=== PATIENT | female | born 1975 | race Caucasian/White ===

== ENCOUNTER 2017-02-12 13:39 | Observation (INO) ==
[2017-02-12] MEDS ORDERED: Tdap (Boostrix) Vaccine 0.5 ML SYRINGE IM ONE (13:56)
[2017-02-12] MEDS ORDERED: Ketorolac 60 MG/2 ML VIAL IM ONE (13:56)
[2017-02-12] MEDS ORDERED: Lido/Epi/Tetra Gel 2 ML SYRINGE TP ONE (13:56)
[2017-02-12] MEDS ORDERED: Lidocaine/EPI 1:100k 1% 50 ML VIAL INFILT ONE (13:56)
--- NOTE | 2017-02-12 13:56 | Emergency Department Note ---
Disposition Clinical Impression: Pilonidal cyst Abscess of skin or subcutaneous tissue Qualifiers: Site of cutaneous abscess: buttock Qualified Code(s): L02.31 - Cutaneous abscess of buttock Cellulitis Qualifiers: Site of cellulitis: buttock Qualified Code(s): L03.317 - Cellulitis of buttock Disposition: Admitted As Inpatient Condition: Fair Skin/Abscess/FB HPI Chief complaint: ED Skin/Abscess/Foreign Body Stated complaint: Cyst on tailbone Time Seen by Provider: 02/12/17 13:52 Source: patient Mode of arrival: private vehicle Limitations: no limitations Nursing Notes Reviewed: Yes Vital Signs Reviewed: Yes Pt Subjective Complaint: abscess/boil Onset (ago): day(s) Tetanus Up to Date: no Location: buttocks Severity: moderate, severe Quality: stabbing, sharp Consistency: constant, Worsening Improves with: none Worsens with: palpation Context: other (Hx of pilonidal cyst s/p recurrent infection) Associated symptoms: Denies: fever, chills, rigors, itching, nausea, vomiting, malaise, arthralgias, myalgias, cough, shortness of breath Treatments prior to arrival: other (was seen at urgent care yesterday and was given ABX) Home Medications Medication Instructions Recorded Confirmed Effexor 02/11/17 Latuda 02/11/17 [place] 02/11/17 02/11/17 Wellbutrin 02/11/17 Previous Rx's Medication Instructions Recorded GuaiFENesin/Dextromethorphan 5 ml PO Q6HR PRN #120 syrup 02/11/17 [Robitussin/DM] Mupirocin [Bactroban Oint] 1 appl TP BID 7 Days 02/11/17 Sulfamethoxazole/Trimeth DS 1 each PO BID #14 tablet 02/11/17 [Bactrim DS] Tramadol HCl [Ultram] 50 mg PO TID PRN #12 tab 02/11/17 Allergies Allergy/AdvReac Type Severity Reaction Status Date / Time No Known Allergies Allergy Verified 02/11/17 10:15 All systems ED: reviewed and negative except as stated. Review of Systems: As Per HPI Constitutional: Denies: fever, chills, weakness Gastrointestinal: Denies: abdominal pain, nausea, vomiting Musculoskeletal: Denies: back pain, neck pain, joint swelling Neurological: Denies: headache, confusion, vertigo Hematological/Lymphatic: Denies: easy bleeding, easy bruising, lymphadenopathy Past Medical History - Past Medical History Attestation: Yes The following information was validated with the patient. Source: patient Medical history: Reports: hepatitis, other Psychiatric history: Reports: bipolar - Social History Smoking Status: Current every day smoker Smokeless Tobacco Status: No Alcohol use: Reports: none Drug use: Reports: other (currently in a drug rehab program. Has been clean for 5 months.) Physical Exam - General Limitations: no limitations General appearance: alert, in no apparent distress - Head Head exam: atraumatic, normocephalic, normal inspection - Eye Eye exam: Present: normal appearance, PERRL. Absent: scleral icterus, conjunctival injection, periorbital swelling - ENT ENT exam: mucous membranes moist - Neck Neck exam: Present: normal inspection - Chest Chest inspection: Present: normal inspection - Respiratory Respiratory exam: Absent: respiratory distress - Cardiovascular Cardiovascular exam: Present: normal rhythm, tachycardia, normal heart sounds - Extremities Exam Extremities exam: Present: full ROM - Expanded Lower Extremity Exam Gait: observed and normal - Neurological Exam Neurological exam: Present: alert, oriented X3, CN II-XII intact, normal gait - Psychiatric Psychiatric exam: Present: normal affect, normal mood - Skin Skin exam: Present: warm, dry, intact, normal color - Expanded Skin Exam Type of lesion: Present: abscess Distribution: other (upper gluteal cleft on left side with erythema extending to the upper right side) Description: Present: size (5cm), tenderness (Severe), erythematous (7 cm of cellulitis), swelling (Mild), fluctuant Course Course Narrative: Patient presents from a rehabilitation facility for evaluation of painful cyst on tailbone. She states that she has pilonidal cyst that often gets infected. She has had to have it drained twice before. She is trying to get in with a surgeon. She has had increased swelling and pain for the last week. She denies fever, chills, nausea or vomiting. She states that she is currently in a rehabilitation program and she has been clean for several months. She is concerned about the level of pain, she will experience when the cyst is drained , however, and states that her facility Center paper with her stating that if needed, she is able to take pain medication. I did review this form. We will try non-narcotic medications first. The abscess is large and she has approximately 7 cm of cellulitis surrounding it. The cellulitis crosses the cleft to the opposite side. LET was applied. Five mL of 1% lidocaine with epinephrine were used to surround the abscess. This provided successful anesthesia. A cruciate incision was made and approximately 20 mL of foul-smelling purulent drainage was evacuated. An attempt was made to explore the abscess and potentially break up any loculations. On exploration with curved hemostats, the enormity of the abscess pocket became evident. I paged Dr. peters, and discussed the case. He recommends that she be admitted to the hospitalist for IV antibiotics. The hospitalist has been paged. - Consultations Consultation #1: Case was discussed with Dr. Peters. He recommends that the patient be admitted for IV antibiotics. He will consult on the patient. Time: 16:44 Vital Signs Temperature 98.4 F 02/12/17 13:47 Pulse Rate 113 02/12/17 13:47 Respiratory Rate 16 02/12/17 13:47 Blood Pressure 128/91 02/12/17 13:47 O2 Sat by Pulse Oximetry 95 02/12/17 13:47 Temperature 98.4 F 02/12/17 13:47 Pulse Rate 113 02/12/17 13:47 Respiratory Rate 16 02/12/17 13:47 Blood Pressure 128/91 02/12/17 13:47 O2 Sat by Pulse Oximetry 95 02/12/17 13:47 Oxygen Delivery Oxygen Delivery Room Air Procedures - Abscess I/D Consent obtained: verbal consent Site: other (superior left gluteal cleft) Side (if applicable): left Local Anesthetic: lidocaine 1%, with epi Technique: incised with #11 blade Amount of fluid: 10 (ml) Irrigation: Yes Packing used?: none Complications: pain
[2017-02-12] MEDS ORDERED: Clindamycin 900 MG/50 ML 900 MG/50 ML IV.SOLN IVPB ONE (16:49)
[2017-02-12] MEDS ORDERED: *HR* HYDROcodone/Acet 5/325 mg TABLET PO ONE (16:49)
[2017-02-12] MEDS ORDERED: Ondansetron ODT 4 MG TAB.RAPDIS SL ONE (16:50)
[2017-02-12] MEDS ORDERED: Nicotine 21 MG PATCH.TD24 TD ONE (16:53)
--- NOTE | 2017-02-12 17:21 | Emergency Department Note ---
Disposition Clinical Impression: Pilonidal cyst Abscess of skin or subcutaneous tissue Qualifiers: Site of cutaneous abscess: buttock Qualified Code(s): L02.31 - Cutaneous abscess of buttock Cellulitis Qualifiers: Site of cellulitis: buttock Qualified Code(s): L03.317 - Cellulitis of buttock Disposition: Admitted As Inpatient Condition: Fair Referrals: NONE,PCP [Primary Care Provider] - Forms: ED Satisfaction Letter General Adult HPI - General Chief complaint: ED Skin/Abscess/Foreign Body Stated complaint: Cyst on tailbone Time Seen by Provider: 02/12/17 13:52 Source: patient Mode of arrival: private vehicle Limitations: no limitations - History of Present Illness Pain Scale: 7 - Related Data Home Medications Medication Instructions Recorded Confirmed Effexor 02/11/17 Latuda 02/11/17 [place] 02/11/17 02/11/17 Wellbutrin 02/11/17 Previous Rx's Medication Instructions Recorded GuaiFENesin/Dextromethorphan 5 ml PO Q6HR PRN #120 syrup 02/11/17 [Robitussin/DM] Mupirocin [Bactroban Oint] 1 appl TP BID 7 Days 02/11/17 Sulfamethoxazole/Trimeth DS 1 each PO BID #14 tablet 02/11/17 [Bactrim DS] Tramadol HCl [Ultram] 50 mg PO TID PRN #12 tab 02/11/17 Allergies Allergy/AdvReac Type Severity Reaction Status Date / Time No Known Allergies Allergy Verified 02/11/17 10:15 Constitutional: Denies: fever, chills, weakness Gastrointestinal: Denies: abdominal pain, nausea, vomiting Musculoskeletal: Denies: back pain, neck pain, joint swelling Neurological: Denies: headache, confusion, vertigo Hematological/Lymphatic: Denies: easy bleeding, easy bruising, lymphadenopathy Past Medical History - Past Medical History Medical history: Reports: hepatitis, other Psychiatric history: Reports: bipolar - Social History Smoking Status: Current every day smoker Smokeless Tobacco Status: No Alcohol use: Reports: none Drug use: Reports: other (currently in a drug rehab program. Has been clean for 5 months.) Physical Exam - General Limitations: no limitations General appearance: alert, in no apparent distress Course Vital Signs Temperature 98.4 F 02/12/17 13:47 Pulse Rate 113 02/12/17 13:47 Respiratory Rate 16 02/12/17 13:47 Blood Pressure 128/91 02/12/17 13:47 O2 Sat by Pulse Oximetry 95 02/12/17 13:47 Temperature 98.4 F 02/12/17 13:47 Pulse Rate 113 02/12/17 13:47 Respiratory Rate 16 02/12/17 13:47 Blood Pressure 128/91 02/12/17 13:47 O2 Sat by Pulse Oximetry 95 02/12/17 13:47 Oxygen Delivery Oxygen Delivery Room Air Attestation Statement - Attestation Attestation: For this encounter, I have reviewed the COMPLIANCE REVIEWER or PA documentation, treatment plan, and medical decision making; and I have had face to face time with this patient. [id number] time provided Patient was seen and evaluated by Pina Elliott the physician licensed physical therapy assistant. She requested admission for this patient due to a large pilonidal cyst. She had spoken with the surgeon for consultation. She plans to admit this patient to medicine service. She appears in no acute distress on exam
[2017-02-12 20:43] LABS: BUN/Creatinine Ratio 14 (6-26); Blood Urea Nitrogen 11 mg/dL (7-20); Calcium 9.7 mg/dL (8.6-10.8); Carbon Dioxide 25 mEq/L (19-29); Chloride 106 mEq/L (98-109); Glucose 79 mg/dL (70-99); Osmolality,Calculated 286 (280-300); Potassium 3.7 mEq/L (3.5-4.5); Sodium 139 mEq/L (136-145); eGFR For African Americans > 60 (> 60); eGFR For Non-African Americans > 60 (> 60)
[2017-02-12 21:12] LABS: Basophils % 0.3 %; Eosinophils % 0.3 %; Hematocrit 35.8 % (35.3-44.9); Hemoglobin 11.7 g/dL (11.5-15.4); Immature Granulocytes % 0.4 % (0-4); Lymphocytes # 1.9 K/mcL (0.6-4.6); Lymphocytes % 14.2 %; Mean Corpuscular HGB Conc 32.7 g/dL (31.6-35.5); Mean Corpuscular Hemoglobin 28.2 pg (28.0-33.3); Mean Corpuscular Volume 86.3 fL (83.0-100.0); Mean Platelet Volume 10.2 fL (9.4-12.4); Monocytes # 1.1 K/mcL (0.0-1.3); Neutrophils # 10.3 K/mcL (1.6-8.9); Platelet Count 240 K/mcL (140-400); Red Blood Count 4.15 M/mcL (3.82-4.97); Red Cell Distribution Width 13.8 % (11.5-14.5); Segmented Neutrophils % 76.8 %
[2017-02-12] MEDS ORDERED: Naloxone 0.4 MG/ML INJ IVP PRN (21:44)
[2017-02-12] MEDS ORDERED: Ondansetron 4 MG/2 ML VIAL IVP PRN (21:44)
[2017-02-12] MEDS ORDERED: Acetaminophen 325 MG TABLET PO PRN (21:44)
[2017-02-12] MEDS: *HR* HYDROcodone/Acet 5/325 mg TABLET PO PRN (22:13)
[2017-02-12] MEDS: *HR* Morphine 2 MG/ML SYRINGE IVP PRN (23:26)
[2017-02-12] MEDS: Clindamycin 600 MG/50 ML 600 MG/50 ML IV.SOLN IVPB SCH (23:28)
--- NOTE | 2017-02-13 01:35 | Internal Med History&Physical ---
Date of Encounter: 02/13/17 Time of Encounter: 20:00 Assessment and Plan (1) DVT prophylaxis Current visit: Yes Status: Acute Heparin subcutaneously (2) Bipolar disorder Current visit: Yes Status: Acute Continue patient's home psych medications Qualifiers: Active/Remission status: remission status unspecified Qualified Code(s): F31.9 - Bipolar disorder, unspecified (3) Pilonidal cyst Current visit: Yes Status: Acute Surgical consult. (4) Abscess of skin or subcutaneous tissue Current visit: Yes Status: Acute Had I/D in emergency room. Continue clindamycin IV. Qualifiers: Site of cutaneous abscess: buttock Qualified Code(s): L02.31 - Cutaneous abscess of buttock (5) Cellulitis Current visit: Yes Status: Acute Treatment as above Qualifiers: Site of cellulitis: buttock Qualified Code(s): L03.317 - Cellulitis of buttock Internal Medicine - H&P: HPI Chief complaint: buttock pain Admitted From: Home Plans for Post Hospital Care: Home History of present illness: Ms. Pratt is a 41 year old female presented to ER for buttock pain for one week. Patient has a cyst on her buttock for 5 years. She feels it is getting infection. Skin is warm. Pain is 10 out of 10. Patient has mild nausea but no vomiting. Patient denies fever. In emergency room, she was found abscess with surrounding cellulitis, she had I and D by ER. Surgical consult Dr. Weiss was called by ER doctor, recommend admit patient to hospital for further management. Past Med Surg Social Fam HX - Past Medical History Medical history: hepatitis, other Psychiatric history: bipolar - Social History Smoking Status: Current every day smoker Smokeless Tobacco Status: No Alcohol use: none Drug use: other - Family History Mother Hx Family Cancer: Yes Hx Family Endocrine Disorder: Yes (DM) Father Cause of : Leukemia Internal Medicine - H&P: Meds BuPROPion SR (12 HR) [Wellbutrin SR] 100 mg PO BID 02/11/17 [History] GuaiFENesin/Dextromethorphan [Robitussin/DM] 5 ml PO Q6HR PRN #120 syrup [Rx] [place] Carbonate ER [Lithobid] 300 mg PO DAILY 02/11/17 [History] Lurasidone HCl [Latuda] 160 mg PO HS 02/11/17 [History] Mupirocin [Bactroban Oint] 1 appl TP BID 7 Days 02/11/17 [Rx] Sulfamethoxazole/Trimeth DS [Bactrim DS] 1 each PO BID #14 tablet 02/11/17 [Rx] Tramadol HCl [Ultram] 50 mg PO TID PRN #12 tab 02/11/17 [Rx] Venlafaxine [Effexor] 75 mg PO TID 02/11/17 [History] 3 Allergy/AdvReac Type Severity Reaction Status Date / Time No Known Allergies Allergy Verified 02/11/17 10:15 All Systems PM: A 10-system review of systems was performed and is negative for pertinent findings except as documented above in the HPI. - Constitutional Vitals: Temp Pulse Resp BP Pulse Ox 98.1 F 101 17 125/84 97 02/12/17 23:23 02/12/17 23:23 02/12/17 23:23 02/12/17 23:23 02/12/17 23:23 General appearance: Present: A&O X 3, no acute distress, answers questions appropriately - Head Head exam: Present: atraumatic, normocephalic - Eye Eye exam: Present: PERRL, conjuntiva pink, sclera anicteric Pupils: Present: PERRL - Neck Neck exam general surgery: Present: supple, trachea midline. Absent: lymphadenopathy - Respiratory Respiratory exam: Present: CTAB. Absent: accessory muscle use, rales, rhonchi, wheezes - Cardiovascular Cardiovascular exam: Present: RRR, +S1, +S2. Absent: diastolic murmur, gallop, rubs, systolic murmur - GI/Abdominal GI/Abdominal exam: Present: normal bowel sounds, soft, no peritoneal signs. Absent: distended, tenderness - Extremities Exam Extremities exam: Present: warm, radial pulses palpable and symmetrical. Absent : calf tenderness, cyanotic, pedal edema - Neurological Exam Neurological exam: Present: CN II-XII intact, oriented X3, no focal deficits. Absent: pronater drift, facial droop, speech deficit - Skin Skin exam: Present: dry, erythema (Buttock abscess S/P I and D, surrounding skin is red and warm), intact, warm Internal Med - H&P Results - Labs CBC & Chem 7: 02/12/17 20:24 02/12/17 20:24 Labs: Short CBC 02/12/17 Range/Units 20:24 WBC 13.4 H (4.3-11.1) K/mcL Hgb 11.7 (11.5-15.4) g/dL Hct 35.8 (35.3-44.9) % Plt Count 240 (140-400) K/mcL Neutrophils # 10.3 H (1.6-8.9) K/mcL BMP 02/12/17 20:24 Sodium 139 Potassium 3.7 Chloride 106 Carbon Dioxide 25 BUN 11 Creatinine 0.79 Glucose 79 Calcium 9.7
[2017-02-13] MEDS: *HR* HYDROcodone/Acet 5/325 mg TABLET PO PRN ×4 (04:26→21:19)
[2017-02-13] MEDS: *HR* Morphine 2 MG/ML SYRINGE IVP PRN ×5 (05:46→22:26)
[2017-02-13] MEDS: *HR* Heparin 5,000 UNIT/ML VIAL SQ SCH ×2 (06:19→17:56)
[2017-02-13 06:22] LABS: BUN/Creatinine Ratio 14 (6-26); Blood Urea Nitrogen 11 mg/dL (7-20); Calcium 9.2 mg/dL (8.6-10.8); Carbon Dioxide 26 mEq/L (19-29); Chloride 105 mEq/L (98-109); Glucose 74 mg/dL (70-99); Osmolality,Calculated 286 (280-300); Potassium 3.9 mEq/L (3.5-4.5); Sodium 139 mEq/L (136-145); eGFR For African Americans > 60 (> 60); eGFR For Non-African Americans > 60 (> 60)
[2017-02-13 06:32] LABS: Basophils # 0.1 K/mcL (0.0-0.2); Basophils % 0.5 %; Eosinophils # 0.1 K/mcL (0.0-0.6); Eosinophils % 0.7 %; Hematocrit 35.4 % (35.3-44.9); Hemoglobin 11.6 g/dL (11.5-15.4); Immature Granulocytes % 0.3 % (0-4); Lymphocytes # 1.9 K/mcL (0.6-4.6); Lymphocytes % 18.6 %; Mean Corpuscular HGB Conc 32.8 g/dL (31.6-35.5); Mean Corpuscular Hemoglobin 29.1 pg (28.0-33.3); Mean Corpuscular Volume 88.9 fL (83.0-100.0); Mean Platelet Volume 10.6 fL (9.4-12.4); Monocytes # 0.9 K/mcL (0.0-1.3); Monocytes % 9.5 %; Platelet Count 226 K/mcL (140-400); Red Blood Count 3.98 M/mcL (3.82-4.97); Segmented Neutrophils % 70.4 %
[2017-02-13] MEDS: Lithium Carbonate ER 300 MG TABLET.ER PO SCH (09:15)
[2017-02-13] MEDS: Clindamycin 600 MG/50 ML 600 MG/50 ML IV.SOLN IVPB SCH ×2 (09:15→16:18)
[2017-02-13] MEDS: BuPROPion SR (12 HR) 100 MG TABLET PO SCH ×2 (09:16→21:20)
[2017-02-13] MEDS: Lactobacillus 1 EACH CAP.SPRINK PO SCH (09:16)
[2017-02-13] MEDS: Nicotine 21 MG PATCH.TD24 TD SCH (11:49)
--- NOTE | 2017-02-13 12:43 | General Surgery Consult Note ---
Date of Encounter: 02/13/17 Time of Encounter: 12:20 History of Present Illness Consult date: 02/12/17 Reason for consult: other (recurrent pilonidal cyst) Requesting physician: Pina Elliott History of present illness: 41-year-old, referred to surgical services after presenting to the emergency department with recurrent pain, swelling and erythema pilonidal region. Patient underwent incision and drainage in the emergency department. The abscess was described as quite extensive and "deep". The patient had apparently been seen in urgent care the day before and started on antibiotics but obviously required incision and drainage. Since the drainage, the skin edges have healed incision but the pain and swelling is diminished. There is no erythema noted today. Patient also has a lipomatous lesion measuring approximately 3 cm in diameter upper inner aspect right thigh just caudal to the inguinal crease. This demonstrates no tenderness, erythema, or inflammation. Past medical history is notable for drug abuse. She is currently in a drug rehabilitation program and describes being "clean" for 5 months. She also has hepatitis and a bipolar disorder Allergies: No known drug allergies Medications: Bupropion 100 mg by mouth twice a day Guaifenesin/dextromethorphan 5 mL by mouth every 6 hours as needed [place] 300 mg by mouth daily Lurasidone 160 mg by mouth daily at bedtime Mupirocin ointment 1 application topically twice a day for 7 days ( prescribed 02/11/17) Sulfamethoxazole/TMP DS 1 by mouth twice a day Tramadol 50 mg by mouth 3 times a day as needed for pain Venlafaxine 75 mg by mouth 3 times a day On admission, the following medications have been initiated: Clindamycin 600 mg IV every 8 hours Hydrocodone with acetaminophen 5/325 one every 4 hours as needed for pain not relieved by Tylenol Morphine 2 mg IV every 4 hours when necessary for severe pain not relieved by oral meds Social history: Current every day smoker; quantity and duration not specified; the patient denies any alcohol use; no drug use in the last 5 months Physical examination: Age-appropriate woman, in no acute distress, seated comfortably in her hospital bedside consuming lunch. Skin: Warm without obvious jaundice Lungs: Clear Cardiac: regular rate Abdomen: Soft nontender Buttocks: 2 cm raised area/abscess near the caudal tip of the coccyx consistent with pilonidal cyst. 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 Extremities: 3 cm, semi-pedunculated, nontender lesion upper inner aspect right thigh. No obvious clubbing, cyanosis, or edema. Laboratories: Leukocytosis has resolved, currently 9.9; hemoglobin stable at 11.6 with hematocrit 35.4 Platelet count 226,000; differential within normal limits. Neutrophilia ( 10.6%) on admission has resolved Cultures? Hopefully, cultures been obtained at the time of the incision and drainage completed in the ED Impression: A 41-year-old woman with recurrent pilonidal cyst inflammation with pain, swelling, and erythema. The acute inflammation appears to be improved following the incision and drainage. Recommendations: Apply warm to hot compresses over the inflamed area with caution against thermal injury. Patient may shower, wash the region with soap and water. Continue antibiotics - consider staph coverage. When culture results known - specific ATB therapy against the offending organism. No topical ointments such as mupirocin. The acute inflammation should be allowed to subside - 4-6 weeks - before surgical intervention (pilonidal cystectomy) Patient indicates she has an appointment with [facility] approx 2016 which she may keep v follow with me (Dr Weiss, [facility]) in approximately 2 weeks. Past Med Surg Social Fam HX - Past Medical History Medical history: hepatitis, other Psychiatric history: bipolar - Social History Smoking Status: Current every day smoker Smokeless Tobacco Status: No Alcohol use: none Drug use: other - Family History Mother Hx Family Cancer: Yes Hx Family Endocrine Disorder: Yes (DM) Father Cause of : Leukemia Medications and Allergies BuPROPion SR (12 HR) [Wellbutrin SR] 100 mg PO BID 02/11/17 [History] GuaiFENesin/Dextromethorphan [Robitussin/DM] 5 ml PO Q6HR PRN #120 syrup [Rx] [place] Carbonate ER [Lithobid] 300 mg PO DAILY 02/11/17 [History] Lurasidone HCl [Latuda] 160 mg PO HS 02/11/17 [History] Mupirocin [Bactroban Oint] 1 appl TP BID 7 Days 02/11/17 [Rx] Sulfamethoxazole/Trimeth DS [Bactrim DS] 1 each PO BID #14 tablet 02/11/17 [Rx] Tramadol HCl [Ultram] 50 mg PO TID PRN #12 tab 02/11/17 [Rx] Venlafaxine [Effexor] 75 mg PO TID 02/11/17 [History] 3 Allergy/AdvReac Type Severity Reaction Status Date / Time No Known Allergies Allergy Verified 02/11/17 10:15 Review of Systems All systems PM: A 10-system review of systems was performed and is negative for pertinent findings except as documented above in the HPI. General Surgery Exam Initial Vital Signs Temp Pulse Resp BP Pulse Ox 98.4 F 113 16 128/91 95 02/12/17 13:47 02/12/17 13:47 02/12/17 13:47 02/12/17 13:47 02/12/17 13:47 Exam Initial Vital Signs Temp Pulse Resp BP Pulse Ox 98.4 F 113 16 128/91 95 02/12/17 13:47 02/12/17 13:47 02/12/17 13:47 02/12/17 13:47 02/12/17 13:47 Results - Labs 02/13/17 05:20 02/13/17 05:20 Diabetes panel 02/12/17 02/13/17 Range/Units 20:24 05:20 Sodium 139 139 (136-145) mEq/L Potassium 3.7 3.9 (3.5-4.5) mEq/L Chloride 106 105 (98-109) mEq/L Carbon Dioxide 25 26 (19-29) mEq/L BUN 11 11 (7-20) mg/dL Creatinine 0.79 0.76 (0.57-1.11) mg/dL Glucose 79 74 (70-99) mg/dL Calcium 9.7 9.2 (8.6-10.8) mg/dL Calcium panel 02/12/17 02/13/17 Range/Units 20:24 05:20 Calcium 9.7 9.2 (8.6-10.8) mg/dL Pituitary panel 02/12/17 02/13/17 Range/Units 20:24 05:20 Sodium 139 139 (136-145) mEq/L Potassium 3.7 3.9 (3.5-4.5) mEq/L Chloride 106 105 (98-109) mEq/L Carbon Dioxide 25 26 (19-29) mEq/L BUN 11 11 (7-20) mg/dL Creatinine 0.79 0.76 (0.57-1.11) mg/dL Glucose 79 74 (70-99) mg/dL Calcium 9.7 9.2 (8.6-10.8) mg/dL Adrenal panel 02/12/17 02/13/17 Range/Units 20:24 05:20 Sodium 139 139 (136-145) mEq/L Potassium 3.7 3.9 (3.5-4.5) mEq/L Chloride 106 105 (98-109) mEq/L Carbon Dioxide 25 26 (19-29) mEq/L BUN 11 11 (7-20) mg/dL Creatinine 0.79 0.76 (0.57-1.11) mg/dL Glucose 79 74 (70-99) mg/dL Calcium 9.7 9.2 (8.6-10.8) mg/dL All other labs normal. Consult Discharge Plan - Plan Referrals: NONE,PCP [Primary Care Provider] -
--- NOTE | 2017-02-13 17:25 | Internal Med Progress Note ---
Date of Encounter: 02/13/17 Time of Encounter: 13:10 - Assessment and plan (1) Pilonidal cyst Current Visit: Yes Status: Acute Assessment and plan: Recurrent pilonidal cyst with acute inflammation - s/p I&D done in the ED Continue IV Clindamycin, IV Morphine as needed for pain Apply warm to hot compresses or inflamed area, cultures pending Gen. surgery Dr. Weiss consult - recommendations reviewed, appreciate input Patient will need eventual outpatient surgical intervention, anticipate discharge in a.m. (2) Bipolar disorder Current Visit: Yes Status: Acute Assessment and plan: Bipolar disorder - stable Continue Latuda, [place]iv[place], Effexor and Wellbutrin Qualifiers: Active/Remission status: remission status unspecified Qualified Code(s): F31.9 - Bipolar disorder, unspecified (3) Tobacco abuse Current Visit: Yes Status: Chronic Assessment and plan: Counseled about cessation, nicotine patch (4) Hepatitis C Current Visit: Yes Status: Chronic Assessment and plan: Probable history of chronic hepatitis C - possibly secondary to drug abuse Patient has apparently been off any illicit drugs for the past 5 months Outpatient follow-up Qualifiers: Viral hepatitis chronicity: chronic Hepatic coma status: without hepatic coma Qualified Code(s): B18.2 - Chronic viral hepatitis C (5) DVT prophylaxis Current Visit: Yes Status: Acute Assessment and plan: Continue heparin subcutaneous - Time Spent With Patient 25 - 35 minutes - Subjective Interval history: Examined today. Patient is awake and alert. Not in any distress. Denies any chest pain or shortness of breath. No fever. Hemodynamically stable. Denies vomiting or abdominal pain. Complains of pain in the gluteal region, and site of abscess. Pain improves with IV medication. Admitted for recurrent pilonidal cyst inflammation with pain and erythema and swelling. IV antibiotics continued. No other acute events or complaints. - Constitutional Vitals: Temp Pulse Resp BP Pulse Ox 98.2 F 86 18 111/76 98 02/13/17 15:05 02/13/17 15:05 02/13/17 15:05 02/13/17 15:05 02/13/17 15:05 General appearance: Present: A&O X 3, pleasant, no acute distress, obese, answers questions appropriately - Head Head exam: Present: atraumatic - Eye Eye exam: Present: EOMI - ENT ENT exam: Present: mucous membranes moist - Respiratory Respiratory exam: Present: CTAB. Absent: rales, rhonchi, wheezes, tachypnea - Cardiovascular Cardiovascular exam: Present: RRR, +S1, +S2 - GI/Abdominal GI/Abdominal exam: Present: soft. Absent: distended, firm, guarding, tenderness - Extremities Exam Extremities exam: Present: radial pulses palpable and symmetrical. Absent: cyanotic, pedal edema - Neurological Exam Neurological exam: Present: alert, oriented X3, no focal deficits. Absent: facial droop, speech deficit - Skin Additional comments: Abscess at the tip of the coccyx with a pilonidal cyst, about 2 cm raised area, minimal erythema, tenderness present Internal Medicine: Result - Labs CBC & Chem 7: 02/13/17 05:20 02/13/17 05:20 Labs: Short CBC 02/12/17 02/13/17 Range/Units 20:24 05:20 WBC 13.4 H 9.9 (4.3-11.1) K/mcL Hgb 11.7 11.6 (11.5-15.4) g/dL Hct 35.8 35.4 (35.3-44.9) % Plt Count 240 226 (140-400) K/mcL Neutrophils # 10.3 H 7.0 (1.6-8.9) K/mcL BMP 02/12/17 02/13/17 20:24 05:20 Sodium 139 139 Potassium 3.7 3.9 Chloride 106 105 Carbon Dioxide 25 26 BUN 11 11 Creatinine 0.79 0.76 Glucose 79 74 Calcium 9.7 9.2 Consult Discharge Plan - Plan Referrals: NONE,PCP [Primary Care Provider] -
[2017-02-14] MEDS: Clindamycin 600 MG/50 ML 600 MG/50 ML IV.SOLN IVPB SCH ×3 (00:16→14:20)
[2017-02-14] MEDS: *HR* Heparin 5,000 UNIT/ML VIAL SQ SCH (06:01)
[2017-02-14] MEDS: *HR* HYDROcodone/Acet 5/325 mg TABLET PO PRN ×2 (06:01→10:11)
[2017-02-14] MEDS: Nicotine 21 MG PATCH.TD24 TD SCH (08:06)
[2017-02-14] MEDS: BuPROPion SR (12 HR) 100 MG TABLET PO SCH (08:07)
[2017-02-14] MEDS: *HR* Morphine 2 MG/ML SYRINGE IVP PRN (08:07)
[2017-02-14] MEDS: Lithium Carbonate ER 300 MG TABLET.ER PO SCH (08:07)
[2017-02-14] MEDS: Lactobacillus 1 EACH CAP.SPRINK PO SCH (08:07)
[2017-02-14 11:17] VITALS: BP 139/65
--- NOTE | 2017-02-14 14:08 | Discharge Summary ---
Date of Encounter: 02/14/17 Time of Encounter: 13:00 - Discharge Diagnosis (1) Pilonidal cyst Priority: Primary Status: Acute Comments: Recurrent pilonidal cyst with acute inflammation - s/p I&D done in the ED Continue PO Clindamycin, Ibuprofen for pain Apply warm to hot compresses or inflamed area, cultures pending Gen. surgery Dr. Weiss consult - recommendations reviewed, appreciate input, follow up as outpatient Patient will need eventual outpatient surgical intervention Stable for discharge today (2) Bipolar disorder Priority: Secondary Status: Chronic Comments: Bipolar disorder - stable Continue Latuda, [place], Effexor and Wellbutrin Qualifiers: Active/Remission status: remission status unspecified Qualified Code(s): F31.9 - Bipolar disorder, unspecified (3) Tobacco abuse Priority: Secondary Status: Chronic Comments: Counseled about cessation, nicotine patch (4) Hepatitis C Priority: Secondary Status: Chronic Comments: Probable history of chronic hepatitis C - possibly secondary to drug abuse Patient has apparently been off any illicit drugs for the past 5 months Outpatient follow-up Qualifiers: Viral hepatitis chronicity: chronic Hepatic coma status: without hepatic coma Qualified Code(s): B18.2 - Chronic viral hepatitis C - Discharge Medications Prescriptions: Clindamycin HCl 300 mg PO TID 10 Days Home Medications: BuPROPion SR (12 HR) [Wellbutrin SR] 100 mg PO BID 02/11/17 [History] GuaiFENesin/Dextromethorphan [Robitussin/Dm] 5 ml PO Q6HR PRN #120 syrup [Rx] [place] Carbonate ER [Lithobid] 300 mg PO DAILY 02/11/17 [History] Lurasidone HCl [Latuda] 160 mg PO HS 02/11/17 [History] Tramadol HCl [Ultram] 50 mg PO TID PRN #12 tab 02/11/17 [Rx] Venlafaxine [Effexor] 75 mg PO TID 02/11/17 [History] Clindamycin HCl 300 mg PO TID 10 Days 02/14/17 [Rx] Allergies/Adverse Reactions: 3 Allergy/AdvReac Type Severity Reaction Status Date / Time No Known Allergies Allergy Verified 02/11/17 10:15 Date of admission: 02/12/17 17:45 Primary care physician: PCP NONE Consults: 02/13/17 02:17 Consult to Surgery [CONS] Routine Consulting Provider: Surgery Chasity Weiss Reason for Consult: Buttock abscess/cyst. Dr Weiss was called by ER Call Completed: Yes Anticipated date of discharge: 02/14/17 - Patient Status Disposition: Home, Self-Care Condition: Good Functional capacity at discharge: independent ambulation Overall status at discharge: patient is back to baseline - Discharge Instructions Instructions: Pilonidal Cyst (DC) Follow Up With: Dieudonne Weiss MD [Non-Partnered Physician] - (Patient aware that office is closed and she will need to call Tues. morning to get appt. made. Thank you) - Diet and Activity Activity: increase activity as tolerated, resume usual activities as tolerated Diet: advance to your usual diet Hospital course: Ms. Pratt is a 41 year old female with past medical history of bipolar disorder , hepatitis C and chronic pilonidal cyst. She presented to the ED with complaints of pain in the gluteal region for about one week. She stated that she has a cyst in her gluteal region for the past 5 years. It seems to get inflamed quite often. She stated that the pain was 10 out of 10. She came in because she thought it was infected. She also had some drainage. I&D was done in the ER. Patient was admitted to the hospital. She was started on IV clindamycin. General surgery has evaluated the patient. Recommended warm compresses and antibiotics by mouth. Advised outpatient follow-up with surgery for pilonidal cystectomy. Patient states that the discharge has now improved. She is being discharged with clindamycin by mouth. She had no other acute events or complications during her stay in the hospital. Patient has been explained about her condition and plan of care in detail. No unanswered questions. She understood and agreed. She has been advised to follow-up with Gen. surgery as outpatient. Patient is being discharged in stable condition. Time spent discussing smoking cessation with patient: 3 to 10 minutes - Time Spent with Patient Total time spent providing and/or coordinating discharge services: Less than 30 minutes - Constitutional Vitals: Temp Pulse Resp BP Pulse Ox 97.3 F L 88 14 139/65 96 02/14/17 11:15 02/14/17 11:15 02/14/17 11:15 02/14/17 11:15 02/14/17 11:15 General appearance: Present: A&O X 3, pleasant, no acute distress, obese, answers questions appropriately - Head Head exam: Present: atraumatic - Eye Eye exam: Present: EOMI - ENT ENT exam: Present: mucous membranes moist - Respiratory Respiratory exam: Present: CTAB. Absent: rales, rhonchi, wheezes, tachypnea - Cardiovascular Cardiovascular exam: Present: RRR, +S1, +S2 - GI/Abdominal GI/Abdominal exam: Present: soft. Absent: distended, firm, guarding, tenderness - Extremities Exam Extremities exam: Present: radial pulses palpable and symmetrical. Absent: calf tenderness, cyanotic, tenderness - Neurological Exam Neurological exam: Present: alert, oriented X3, no focal deficits. Absent: facial droop, speech deficit - Skin Additional comments: Abscess at the tip of the coccyx with a pilonidal cyst, about 2 cm raised area, minimal erythema, tenderness present
== END 2017-02-14 15:02 | disposition home or self-care (01) ==
LOC: 3ANU 13:39 → EMEROO 13:39 → 3ANU 18:25
PROVIDERS: ADMIT Nurse Practitioner Acute Care; ATTEND Family Medicine

== ENCOUNTER 2017-03-30 10:07 | Inpatient (IN) ==
[2017-03-30] MEDS ORDERED: Albuterol 2.5 MG/3 ML NEBULIZER IH ONE (10:38)
[2017-03-30] MEDS ORDERED: Ringers Solution, Lactated 1,000 ML IVC SCH ×2 (10:45→16:54)
[2017-03-30] MEDS ORDERED: CeFAZolin Pre 2,000 MG/100 ML 2,000 MG/100 ML BAG IVPB ONE ×2 (10:48→12:00)
--- NOTE | 2017-03-30 11:07 | Anesthesia Evaluation PreOp ---
Date of Encounter: 03/30/17 Time of Encounter: 11:05 - Past History Planned Operation: Pilonidal Cystectomy Cardiac History: Denies any Significant Hx Pulmonary History: Smoker, Pack/yr (1 ppd x 28 years) RECRUITER History: Other (Bipolar) Other Medical History: Hepatic (Hep C), Other (Morbid Obesity) Anesthesia History: No Prior Anesthetic Complications, Past Anesthesia (Hip I&D) : No Test: Negative (03/30/17) Alcohol Use: none Drug use: IV Drug Use (none for 7 months) Medications and Allergies BuPROPion SR (12 HR) [Wellbutrin SR] 100 mg PO BID 02/11/17 [History] Lurasidone HCl [Latuda] 160 mg PO HS 02/11/17 [History] Venlafaxine [Effexor] 75 mg PO TID 02/11/17 [History] Ferrous Sulfate [Iron] 325 mg PO DAILY 03/16/17 [History] Accident Carbonate 450 mg PO DAILY 03/16/17 [History] Mv-Mn/FA/Vit K/Lycop/Lut/Coq10 [Daily Multivitamin Capsule] 1 tab PO DAILY 03/16 [History] 3 Allergy/AdvReac Type Severity Reaction Status Date / Time No Known Allergies Allergy Verified 03/30/17 10:25 - Meds/Allergy Pre-op Review Medications Reviewed: Yes Allergies Reviewed: Yes Beta Blockers on Current Med List: No Anesthesia Results - Labs Laboratory Tests 03/11/17 03/11/17 12:22 12:22 WBC 9.6 Hgb 12.3 Hct 39.3 Plt Count 246 Sodium 138 Potassium 4.2 Chloride 107 Carbon Dioxide 24 BUN 9 Creatinine 0.74 Anesthesia Exam O2 Sat Height 1.83 m Height 1.83 m Weight 142.882 kg Weight 142.882 kg O2 Sat by Pulse Oximetry 96 O2 Sat by Pulse Oximetry 96 Vital Signs Temp Pulse Resp BP Pulse Ox 99.1 F 85 18 124/81 96 03/30/17 10:42 03/30/17 10:42 03/30/17 10:42 03/30/17 10:42 03/30/17 10:42 Height: 6' Weight: 315# NPO (# of Hours): > 8 hrs Pain Scale: 0 Pain Scale Used: Numeric (1 - 10) - HEENT Pupil (Motor): Pupils equal, EOMI Mallampati: I Teeth: Normal Oral Opening: Greater than 3 - RECRUITER LOC: Oriented RECRUITER Motor: Normal RUE, Normal LUE, Normal RLE, Normal LLE, Normal Face RECRUITER Sensory: Normal: RUE, LUE, RLE, LLE, Face - Cardiac Rhythm: Regular Murmur: None JVD: No Carotid Bruit: No - Pulmonary Breath Sounds: bilateral Clear Respiratory Effort: Symmetrical Anesthesia Assess/Plan ASA Score: 3 Modified Francisco Scale for Level of Consciousness: Cooperative, oriented, and tranquil Anesthetic Plan: General Autologous Blood: Yes Monitoring Plan: Standard Monitors Recovery Plan: PACU
[2017-03-30] MEDS ORDERED: Nicotine 7 MG PATCH.TD24 TD ONE (11:25)
--- NOTE | 2017-03-30 12:01 | History & Physical Report ---
Date of Encounter: 03/30/17 Time of Encounter: 11:59 24 Hour HP Update - Instructions Instructions: If the History and Physical is less than 30 days old and was completed prior to A.M. admission and or procedure and has NOT been updated on calendar day of procedure please complete this update prior to performing procedure. - Update Patient reports changes in Medical Condition: No Changes in examination, assessment, or condition: No Changes in Medication: No Preop tests/diagnostics Reviewed: Yes Surgery Remains Indicated: Yes Consent for Planned Operative Procedure(s) Verified: Yes - Pre-Operative Checklist Preoperative Checklist Indicated: Yes Prophylactic Antibiotic Ordered: Yes Home Medications Include Beta Ahsan: No Beta Ahsan Taken Today (Day of Surgery): No Beta Ahsan Taken Yesterday (Day Prior to Surgery): No Is VTE Prophylaxis Indicated?: Yes
[2017-03-30] MEDS ORDERED: *HR* Propofol 200 MG/20 ML VIAL IVP ONE (13:14)
[2017-03-30] MEDS ORDERED: *HR* Midazolam HCl 2 MG/2 ML VIAL ONE (13:14)
[2017-03-30] MEDS ORDERED: *HR* FentaNYL (PF) 100 MCG/2 ML VIAL ONE (13:14)
[2017-03-30] MEDS ORDERED: Lidocaine -MPF 2% 2 ML VIAL ONE (13:16)
[2017-03-30] MEDS ORDERED: Bupivacaine/EPI 1:200k 0.25%PF 30 ML VIAL ONE (13:25)
[2017-03-30] MEDS ORDERED: Lacri-Lube 3.5 GM TUBE ONE (13:56)
[2017-03-30] MEDS ORDERED: Ondansetron 4 MG/2 ML VIAL ONE (14:09)
[2017-03-30] MEDS ORDERED: Dexamethasone 4 MG/ML VIAL ONE (14:09)
[2017-03-30] MEDS ORDERED: *HR* Promethazine 25 MG/ML VIAL IVP PRN (14:21)
--- NOTE | 2017-03-30 15:12 | Operative Note ---
Date of procedure: 03/30/17 Pre-op diagnosis: disrupted pilonidal cystectomy incision Post-op diagnosis: same Procedure: wound exploration, debridement with application Wound Vac Complications: none apparent Anesthesia: MOSES Surgeon: Dieudonne Weiss Relay Motorman: Luca Ward Estimated blood loss (cc): 2 IV fluids (cc): 700 Specimen: none Condition: stable Disposition: PACU Procedure in Detail: The patient was brought to the operating room. The patient was appropriately identified as to person and procedure. The accuracy of this information was confirmed by the patient and procedure team. Surgical consent had been obtained preoperatively. The patient was intubated and anesthetized under the supervision of Dr. Leo Dixon while supine on the transport cart. When the airway was secured, the patient was placed prone on the operating room table. In the process of positioning the patient, the pilonidal incision opened further. Skin jose were removed. The wound and surrounding area was prepped with Betadine and draped under sterile conditions. Wound measurements identified 4 cm undermining in a cephalad direction while the overlying skin closure remained intact. The wound was 5 cm deep, measuring 6 cm L x 3 cm W. The wound was irrigated with hydrogen peroxide followed by 3 L of sterile saline administered with the Pulsavac plus irrigation system. The wound was clean. A medium wound vac sponge was cut to size and placed into the wound. The Wound Vac dressing was applied and the pump applied. No significant air leak was encountered or detected. The patient was taken to PACU in stable condition. Needle, sponge and instrument counts were correct at the close of the case.
[2017-03-30] MEDS: *HR* HYDROmorphone (PF) 1 MG/ML SYRINGE IVP PRN ×2 (15:20→15:25)
--- NOTE | 2017-03-30 16:13 | Anesthesia Evaluation Post Op ---
Date of Encounter: 03/30/17 Time of Encounter: 15:50 - Vital Signs Vital Signs: Vital Signs/O2 Sat/Glucose, Most Current Temp Pulse Resp BP Pulse Ox 03/30/17 15:48 99.8 F H 77 16 102/72 95 03/30/17 15:38 99.8 F H 86 12 112/74 95 03/30/17 15:28 99.8 F H 88 18 109/85 96 03/30/17 15:18 84 10 102/72 100 03/30/17 15:08 84 20 112/67 100 03/30/17 14:58 98.3 F 95 16 128/86 98 - Lungs Lungs: Clear Ascult./Percussion - Airway Airway: Non-obstructed - Cardiovascular Regular Rate - Mental Status Mental Status: Alert & Oriented, Answers Appropriately - Pain Pain Scale: 5 Pain Scale used: Numeric (1 - 10) - Nausea Vomiting Nausea Vomiting: Not Present - Hydration Hydration: Ice chips (DEclined Ice chips), Has not voided - Discharge PostOp Status: Transfer Patient to floor Anes Supervising Prov Stmt: PT seen/evaluated, VSS and pt has met criteria for discharge to floor. MD Rosario
[2017-03-30] MEDS ORDERED: *HR* OxyCODONE/APAP 10/325 TABLET PO PRN (16:54)
[2017-03-30] MEDS: BuPROPion SR (12 HR) 100 MG TABLET PO SCH ×2 (17:24→20:17)
[2017-03-30] MEDS: Lithium Carbonate ER 450 MG TABLET.ER PO SCH (17:56)
[2017-03-30] MEDS ORDERED: Nicotine 7 MG PATCH.TD24 TD SCH (20:15)
[2017-03-30] MEDS ORDERED: BuPROPion SR (12 HR) 100 MG TABLET PO SCH (21:00)
[2017-03-30] MEDS: *HR* OxyCODONE/APAP 5/325 TABLET PO PRN (21:41)
[2017-03-31] MEDS: *HR* OxyCODONE/APAP 5/325 TABLET PO PRN ×3 (04:12→12:21)
[2017-03-31] MEDS: Multivit/Ca/Min/Fe/FA 1 TAB TABLET PO SCH (08:28)
[2017-03-31] MEDS: Lithium Carbonate ER 450 MG TABLET.ER PO SCH (08:28)
[2017-03-31] MEDS: BuPROPion SR (12 HR) 100 MG TABLET PO SCH ×2 (08:28→21:07)
[2017-03-31] MEDS ORDERED: Lithium Carbonate ER 450 MG TABLET.ER PO SCH (09:00)
--- NOTE | 2017-03-31 11:59 | General Surgery Progress Note ---
Date of Encounter: 03/31/17 Time of Encounter: 11:52 Subjective Narrative: General Surgery - POD #1 Patient agitated; lying in bed naked. In the immediate postoperative period the patient was agitated and inappropriate. It was revealed that she did not take her usual meds prior to surgery. With administration of her usual meds, her behavior became less inappropriate and the patient calmed. The patient is upset that Percocet 10/325 every 4 hours was denied. She is taking Percocet 5/325 every 4 hours with what appears to be satisfactory pain control. Patient has been afebrile since surgery, temperature 97.7; pulse 81-97 ( currently 97) respiratory rate 18, blood pressure 116/80. SPO2 on room air 95% Lungs: Clear Abdomen: Soft Pilonidal incision - wound VAC intact; wound appears clean. Drainage - scant fluid in the reservoir Impression: Postoperative day 1, status post debridement and irrigation of pilonidal cystectomy site with application wound VAC. Clinically the patient appears to be well, however, the patient is agitated she is not able to smoke nor receive pain medications at the dosage and frequency of her choice. Plan: Increase nicotine patch to 21 mg daily Change Percocet to 10/325 every 6 hours (patient had been receiving Percocet 5/325, every 4 hours). The patient's history of substance abuse and continued demands for pain medication are being balanced as best as possible. Consult social contact worker Objective Vital Signs - Last 8 Hours Temp Pulse Resp BP Pulse Ox 03/31/17 06:45 97.7 F 97 18 116/80 95 03/31/17 03:57 97.9 F 81 18 110/75 93 Intake and Output 03/30/17 03/31/17 03/31/17 23:59 07:59 15:59 Intake Total 360 / 360 240 / 240 240 / 240 Balance 360 / 360 240 / 240 240 / 240 Intake: Oral 360 / 360 240 / 240 240 / 240 Other: Meal Dinner Breakfast Percent of Meal Consumed 90% 100% # Voids 1 1 Weight 142.882 kg Patient Weight 03/31/17 23:59 Weight 142.882 kg Consult Discharge Plan - Plan Referrals: NONE,PCP [Primary Care Provider] -
[2017-03-31] MEDS: Nicotine 21 MG PATCH.TD24 TD SCH (12:21)
[2017-03-31] MEDS: Acetaminophen 325 MG TABLET PO PRN (15:47)
[2017-03-31] MEDS: *HR* OxyCODONE/APAP 10/325 TABLET PO PRN (18:25)
[2017-04-01] MEDS: *HR* OxyCODONE/APAP 10/325 TABLET PO PRN ×4 (00:37→18:50)
[2017-04-01] MEDS: Multivit/Ca/Min/Fe/FA 1 TAB TABLET PO SCH (08:36)
[2017-04-01] MEDS: Nicotine 21 MG PATCH.TD24 TD SCH (08:37)
[2017-04-01] MEDS: BuPROPion SR (12 HR) 100 MG TABLET PO SCH ×2 (08:37→21:43)
[2017-04-01] MEDS: Lithium Carbonate ER 450 MG TABLET.ER PO SCH (08:37)
--- NOTE | 2017-04-01 15:18 | General Surgery Progress Note ---
Date of Encounter: 04/01/17 Time of Encounter: 15:11 Subjective Patient reports: no new complaints Narrative: General Surgery - POD #2 Patient much calmer/less agitated; afebrile, currently 97.7, pulse 82, respirations 14, blood pressure 115/80 Patient has been active out of bed; no obvious pain Wound VAC exchange today with Nicolasa Espinosa, Wound Care Nurse in attendance The pilonidal cystectomy wound remains clean with healthy granulation tissue. Wound VAC sponge exchanged and wound VAC reapplied Lungs: Clear Abdomen: Soft nontender; patient tolerating regular diet, active bowel Extremities: Wound medial right thigh, status post excision cutaneous lipoma , clean and healing well. Impression: Postoperative day #2, status post irrigation and debridement erupted pilonidal cystectomy site with application of wound VAC. Acceptable postoperative status. Wound remains clean with healthy granulation tissue Anticipate prolonged application of wound VAC until the wound can be secondarily closed Patient in no obvious pain Treatment plan: Discussed with patient in detail; the patient expressed understanding and indicated cooperation with the treatment plan. Objective Vital Signs - Last 8 Hours Temp Pulse Resp BP Pulse Ox 04/01/17 14:12 97.7 F 82 14 115/80 96 04/01/17 10:54 97.7 F 92 14 152/90 95 04/01/17 08:40 95 Intake and Output 03/31/17 04/01/17 04/01/17 23:59 07:59 15:59 Intake Total 600 / 600 120 / 120 960 / 960 Output Total 50 / 50 0 / 0 0 / 0 Balance 550 / 550 120 / 120 960 / 960 Intake: Oral 600 / 600 120 / 120 960 / 960 Output: Urine 0 / 0 0 / 0 Wound Drainage 50 / 50 Buttock 50 / 50 Other: Meal Dinner Lunch Percent of Meal Consumed 100% 80% # Voids 2 1 3 # Bowel Movements 0 Weight 142.8 kg Patient Weight 04/01/17 23:59 Weight 142.8 kg Consult Discharge Plan - Plan Referrals: NONE,PCP [Primary Care Provider] -
[2017-04-01] MEDS ORDERED: *HR* OxyCODONE/APAP 5/325 TABLET PO ONE (15:31)
[2017-04-02] MEDS: *HR* OxyCODONE/APAP 10/325 TABLET PO PRN ×4 (00:59→19:29)
[2017-04-02 05:20] LABS: Basophils # 0.1 K/mcL (0.0-0.2); Basophils % 0.7 %; Eosinophils # 0.1 K/mcL (0.0-0.6); Eosinophils % 1.3 %; Hematocrit 36.9 % (35.3-44.9); Hemoglobin 11.9 g/dL (11.5-15.4); Immature Granulocytes % 0.8 % (0-4); Lymphocytes # 1.8 K/mcL (0.6-4.6); Lymphocytes % 16.9 %; Mean Corpuscular HGB Conc 32.2 g/dL (31.6-35.5); Mean Corpuscular Hemoglobin 28.5 pg (28.0-33.3); Mean Corpuscular Volume 88.3 fL (83.0-100.0); Mean Platelet Volume 10.2 fL (9.4-12.4); Monocytes % 9.5 %; Neutrophils # 7.6 K/mcL (1.6-8.9); Platelet Count 211 K/mcL (140-400); Red Blood Count 4.18 M/mcL (3.82-4.97); Segmented Neutrophils % 70.8 %
--- NOTE | 2017-04-02 09:17 | General Surgery Progress Note ---
Date of Encounter: 04/02/17 Time of Encounter: 09:12 Subjective Patient reports: still having pain Narrative: General Surgery - POD #3 Patient complaining of throbbing pain ever since the wound VAC was exchanged. Remains active out of bed and on my presentation to bedside the patient was in no acute distress. Afebrile, currently 98.1, pulse 9092, respirations 18, blood pressure 101/69 ; SPO2 on room air 95% Lungs: Clear Abdomen: Obese, soft, nontender; active bowel sounds Pilonidal wound clean and dry wound VAC dressing intact. Wound drainage approximately 100 mL since 03/31/17. The fluid is serosanguineous Extremities: Wound proximal medial right thigh - clean, dry. Satisfactory skin approximation. Laboratories: White count 10.7, hemoglobin 11.9, hematocrit 36.9, platelet count 211,000; differential within normal limits. Impression: Disrupted pilonidal cystectomy - postoperative day #3 status post irrigation, debridement, and application of wound VAC Acceptable status Plan: Continue wound care as is. Continue Percocet 10/325 every 6 hours as needed for pain; I intend to reduce the dosage in the next 24-48 hours. Objective Vital Signs - Last 8 Hours Temp Pulse Resp BP Pulse Ox 04/02/17 06:37 98.1 F 90 18 101/69 95 Intake and Output 04/01/17 04/02/17 04/02/17 23:59 07:59 15:59 Intake Total 960 / 960 360 / 360 Balance 960 / 960 360 / 360 Intake: Oral 960 / 960 360 / 360 Other: Meal Dinner Breakfast Percent of Meal Consumed 100% 100% # Voids 4 1 # Bowel Movements 0 - Labs 04/02/17 04:36 Consult Discharge Plan - Plan Referrals: NONE,PCP [Primary Care Provider] -
[2017-04-02] MEDS: BuPROPion SR (12 HR) 100 MG TABLET PO SCH ×2 (09:38→21:25)
[2017-04-02] MEDS: Acetaminophen 325 MG TABLET PO PRN (09:38)
[2017-04-02] MEDS: Nicotine 21 MG PATCH.TD24 TD SCH (09:39)
[2017-04-02] MEDS: Lithium Carbonate ER 450 MG TABLET.ER PO SCH (09:39)
[2017-04-02] MEDS: Multivit/Ca/Min/Fe/FA 1 TAB TABLET PO SCH (09:39)
[2017-04-02] MEDS ORDERED: Mag Hydrox/Al Hydrox/Simeth 30 ML UDC PO PRN (20:09)
[2017-04-03] MEDS: *HR* OxyCODONE/APAP 10/325 TABLET PO PRN ×2 (01:51→08:34)
[2017-04-03] MEDS: Lithium Carbonate ER 450 MG TABLET.ER PO SCH (08:33)
[2017-04-03] MEDS: Nicotine 21 MG PATCH.TD24 TD SCH (08:33)
[2017-04-03] MEDS: Multivit/Ca/Min/Fe/FA 1 TAB TABLET PO SCH (08:34)
[2017-04-03] MEDS: BuPROPion SR (12 HR) 100 MG TABLET PO SCH ×2 (08:34→20:51)
[2017-04-03] MEDS ORDERED: Ibuprofen 400 MG TABLET PO PRN (10:20)
--- NOTE | 2017-04-03 10:28 | General Surgery Progress Note ---
Date of Encounter: 04/03/17 Time of Encounter: 10:22 Subjective Patient reports: no new complaints Narrative: General Surgery - POD #4 Patient in good spirits, voicing no complaints. He indicates pain has been controlled. She only has pain during dressing changes" Patient remains afebrile, currently 98.7, pulse 96-108, respirations 16, blood pressure 109/71-147/98 Lungs: Clear Abdomen: Obese, soft, nontender Pilonidal cystectomy site clean dry. Wound VAC intact; drainage approximately 170 mL serous fluid in the last 24 hours Extremities: Excision site upper inner right thigh clean and dry; skin separation persists but the wound is clean with healthy granulation tissue Impression: Postoperative day #4, status post irrigation/debridement disrupted pilonidal cystectomy. Acceptable postoperative status; wound clean and dry. Responding to wound VAC therapy Pain is controlled Plan: Change wound VAC dressing and SPECT wound in a.m. Reduce Percocet to 5/325 every 6 hours as needed for breakthrough pain. Patient aware of this reduction and is in agreement. Treat pain primarily with Tylenol and/or ibuprofen. Objective Vital Signs - Last 8 Hours Temp Pulse Resp BP Pulse Ox 04/03/17 08:36 95 04/03/17 07:00 98.7 F 108 16 109/71 95 04/03/17 03:44 97.9 F 96 18 147/98 97 Intake and Output 04/02/17 04/03/17 04/03/17 23:59 07:59 15:59 Intake Total 840 / 840 240 / 240 480 / 480 Output Total 45 / 45 0 / 0 75 / 75 Balance 795 / 795 240 / 240 405 / 405 Intake: Oral 840 / 840 240 / 240 480 / 480 Output: Urine 0 / 0 Wound Drainage 45 / 45 75 / 75 Buttock 45 / 45 75 / 75 Other: Meal Dinner Breakfast Percent of Meal Consumed 90% 100% # Voids 3 2 Weight 141.9 kg Patient Weight 04/03/17 23:59 Weight 141.9 kg - Labs 04/02/17 04:36 Consult Discharge Plan - Plan Referrals: NONE,PCP [Primary Care Provider] -
[2017-04-03] MEDS: *HR* OxyCODONE/APAP 5/325 TABLET PO PRN ×2 (14:32→20:51)
[2017-04-04] MEDS: *HR* OxyCODONE/APAP 5/325 TABLET PO PRN ×3 (06:23→20:06)
[2017-04-04] MEDS: Nicotine 21 MG PATCH.TD24 TD SCH (08:34)
[2017-04-04] MEDS: BuPROPion SR (12 HR) 100 MG TABLET PO SCH ×2 (08:36→20:14)
[2017-04-04] MEDS: Multivit/Ca/Min/Fe/FA 1 TAB TABLET PO SCH (08:37)
[2017-04-04] MEDS: Lithium Carbonate ER 450 MG TABLET.ER PO SCH (08:37)
--- NOTE | 2017-04-04 12:40 | General Surgery Progress Note ---
Date of Encounter: 04/04/17 Time of Encounter: 12:29 Subjective Patient reports: other (Wound vac leaking with drainage "running down my leg") Narrative: General Surgery - POD #5 - patient complaining of Wound Vac leaking with fluid "running down my leg". Patient indicates Nursing refused to complete a dressing change. A dressing change was not needed but repair of the leak was indicated. This was refused by the patient. The Wound Vac dressing was severely compromised this AM. The plastic seal was barely attached to the skin, The sponges were removed without difficulty. The patient did not require supplemental percocet for the dressing change The wound demonstrates approx 3 cm tunnelling under the cephalad skin flap The wound measures 7 cm deep. The tissue within the wound is clean and healthy in appearance. The patient was upset when approached about her refusal to have the dressing repaired last evening. The patient remains afebrile, 98.9, pulse is elevated at 103 but this usually reflects her emotional state; respiratory rate 16, blood pressure 113/79. Patient remains hemodynamically stable. Wound Vac output - 3 entries: wound drainage 80mL, buttock 75mL, posterior sacrum 5mL. Aggregate drainage - 160mL serous fluid. Impression: Maintaining wound VAC over the weekend (3 days) was severely compromised. The patient will require dressing change every 2 days. Little progress, to date, in wound improvement though the tissue remains healthy with no evidence of infection. Plan: Continue Wound Vac change Wound Vac - Q2H Objective Vital Signs - Last 8 Hours Temp Pulse Resp BP Pulse Ox 04/04/17 10:40 98.9 F 103 16 113/79 98 04/04/17 08:42 98 04/04/17 06:51 97.6 F 92 16 128/88 98 Intake and Output 04/03/17 04/04/17 04/04/17 23:59 07:59 15:59 Intake Total 600 / 600 200 / 200 240 / 240 Output Total 5 / 5 0 / 0 Balance 595 / 595 200 / 200 240 / 240 Intake: Oral 600 / 600 200 / 200 240 / 240 Output: Urine 0 / 0 Wound Drainage 5 / 5 Posterior Sacrum 5 / 5 Other: Meal Dinner Breakfast Percent of Meal Consumed 50% 100% # Voids 2 2 3 # Bowel Movements 0 0 Weight 142.2 kg Patient Weight 04/04/17 23:59 Weight 142.2 kg - Labs 04/02/17 04:36 Consult Discharge Plan - Plan Referrals: NONE,PCP [Primary Care Provider] -
[2017-04-05] MEDS: *HR* OxyCODONE/APAP 5/325 TABLET PO PRN ×4 (02:19→20:19)
[2017-04-05] MEDS: Lithium Carbonate ER 450 MG TABLET.ER PO SCH (08:32)
[2017-04-05] MEDS: Multivit/Ca/Min/Fe/FA 1 TAB TABLET PO SCH (08:32)
[2017-04-05] MEDS: Nicotine 21 MG PATCH.TD24 TD SCH (08:32)
[2017-04-05] MEDS: BuPROPion SR (12 HR) 100 MG TABLET PO SCH ×2 (08:32→20:20)
[2017-04-05] MEDS ORDERED: *HR* OxyCODONE/APAP 5/325 TABLET PO ONE (16:11)
--- NOTE | 2017-04-05 16:47 | General Surgery Progress Note ---
Date of Encounter: 04/05/17 Time of Encounter: 15:40 Subjective Patient reports: no new complaints Narrative: General Surgery - POD #6 Patient remains upset with me. She indicates that she is feeling well, but answering in monosyllables. The patient indicates that she is still in pain. The patient remains afebrile, and currently 98.1, pulse 61, respirations 16, blood pressure 134/83 Lungs: Clear Abdomen: Soft nontender Pilonidal cystectomy site appears clean and dry; the wound VAC dressing is in place, a small leak is evident. Using Mastisol and OpSite dressings the leak was repaired. Patient provided Percocet 5/325 x 1 for the dressing repair. No significant wound drainage recorded for 04/04/17 or today. Plan: recheck Wound Vac later today Wound Vac dressing change in AM Objective Vital Signs - Last 8 Hours Temp Pulse Resp BP Pulse Ox 04/05/17 14:29 98.1 F 61 16 134/83 97 04/05/17 10:12 98.0 F 89 16 126/90 95 Intake and Output 04/05/17 04/05/17 04/05/17 07:59 15:59 23:59 Intake Total 720 / 720 Balance 720 / 720 Intake: Oral 720 / 720 Other: Meal Lunch Percent of Meal Consumed 100% # Voids 1 1 # Bowel Movements 0 0 Weight 142.882 kg Patient Weight 04/05/17 23:59 Weight 142.882 kg - Labs 04/02/17 04:36 Consult Discharge Plan - Plan Referrals: Dieudonne Weiss MD [Non-Partnered Physician] - NONE,PCP [Primary Care Provider] -
[2017-04-06] MEDS: *HR* OxyCODONE/APAP 5/325 TABLET PO PRN ×3 (08:21→22:25)
[2017-04-06] MEDS: BuPROPion SR (12 HR) 100 MG TABLET PO SCH ×2 (08:21→20:57)
[2017-04-06] MEDS: Multivit/Ca/Min/Fe/FA 1 TAB TABLET PO SCH (08:21)
[2017-04-06] MEDS: Nicotine 21 MG PATCH.TD24 TD SCH (08:21)
[2017-04-06] MEDS: Lithium Carbonate ER 450 MG TABLET.ER PO SCH (08:21)
--- NOTE | 2017-04-06 17:05 | General Surgery Progress Note ---
Date of Encounter: 04/06/17 Time of Encounter: 16:45 Subjective Patient reports: no new complaints Narrative: General Surgery - POD #7 Patient voicing no new complaints; afebrile, pulse 96, respirations 18, blood pressure 125/80. SPO2 on room air 97% Lungs: Clear Abdomen: Soft, nontender Pilonidal cystectomy site - remains clean and dry. Wound VAC dressing changed with Nicolasa Espinosa in attendance. The wound remains clean with healthy granulation tissue No significant change in size. The wound vac dressing was reapplied. Impression: Stable, disrupted pilonidal cystectomy site. Wound clean, stable Plan: Continue wound VAC therapy Home health arrangements in progress. Appears the patient will be ready for discharge her mother's home in the a.m. This is predicated on Home Health readiness to begin outpatient wound care. The patient's behavioral issues and substance abuse is anticipated to continue to interfere with the patient's care and recovery. Objective Vital Signs - Last 8 Hours Temp Pulse Resp BP Pulse Ox 04/06/17 11:56 97.6 F 96 18 125/80 97 Intake and Output 04/06/17 04/06/17 04/06/17 07:59 15:59 23:59 Intake Total 240 / 240 720 / 720 Balance 240 / 240 720 / 720 Intake: Oral 240 / 240 720 / 720 Other: Meal Lunch Percent of Meal Consumed 100% # Voids 2 Weight 142.882 kg Patient Weight 04/06/17 23:59 Weight 142.882 kg - Labs 04/02/17 04:36 Consult Discharge Plan - Plan Referrals: Dieudonne Weiss MD [Non-Partnered Physician] - NONE,PCP [Primary Care Provider] -
[2017-04-07] MEDS: *HR* OxyCODONE/APAP 5/325 TABLET PO PRN ×2 (04:19→10:03)
[2017-04-07 08:34] VITALS: BP 146/101
[2017-04-07] MEDS: Lithium Carbonate ER 450 MG TABLET.ER PO SCH (10:01)
[2017-04-07] MEDS: Nicotine 21 MG PATCH.TD24 TD SCH (10:01)
[2017-04-07] MEDS: BuPROPion SR (12 HR) 100 MG TABLET PO SCH (10:01)
[2017-04-07] MEDS: Multivit/Ca/Min/Fe/FA 1 TAB TABLET PO SCH (10:01)
--- NOTE | 2017-04-07 13:23 | Discharge Summary ---
Outpatient Proc Discharge Plan - Plan Additional Instructions: Wound Vac care with Home Health assistance Regular diet Tylenol, ibuprofen, Motrin, Advil, etc. as needed for pain Prescription for Percocet 5/325, #10, one to be taken prior to dressing changes Follow up my office, 04/15/2017 Prescriptions: Nicotine Patch [Nicoderm] 21 mg TD DAILY #14 patch.td24 OxyCODONE/APAP 5/325 [Percocet 5/325 MG] 1 each PO ONCE #10 tablet Home Medications: BuPROPion SR (12 HR) [Wellbutrin SR] 100 mg PO BID 02/11/17 [History] Lurasidone HCl [Latuda] 160 mg PO HS 02/11/17 [History] Venlafaxine [Effexor] 75 mg PO TID 02/11/17 [History] Ferrous Sulfate [Iron] 325 mg PO DAILY 03/16/17 [History] [place] Carbonate 450 mg PO DAILY 03/16/17 [History] Mv-Mn/FA/Vit K/Lycop/Lut/Coq10 [Daily Multivitamin Capsule] 1 tab PO DAILY 03/16 [History] Acetaminophen [Tylenol] 650 mg PO Q6HR PRN tablet 04/07/17 [Rx] Ibuprofen [Motrin] 400 mg PO Q6HR PRN tablet 04/07/17 [Rx] Nicotine Patch [Nicoderm] 21 mg TD DAILY #14 patch.td24 04/07/17 [Rx] OxyCODONE/APAP 5/325 [Percocet 5/325 MG] 1 each PO ONCE #10 tablet 04/07/17 [Rx]
--- NOTE | 2017-04-07 13:49 | Physician Discharge Referral ---
Home Health/Hosp Referral Info Transfer to: Home Health Attending Provider: fran Provider in Charge Post Discharge: Other - Respiratory Orders Smoking Cessation: Smoking cessation has been advised. For more information, call the [place] Tobacco Quit Line at 5-823-UFTQ-NOW. - Transfer Medications Prescriptions: Nicotine Patch [Nicoderm] 21 mg TD DAILY #14 patch.td24 OxyCODONE/APAP 5/325 [Percocet 5/325 MG] 1 each PO ONCE #10 tablet Home Medications: BuPROPion SR (12 HR) [Wellbutrin SR] 100 mg PO BID 02/11/17 [History] Lurasidone HCl [Latuda] 160 mg PO HS 02/11/17 [History] Venlafaxine [Effexor] 75 mg PO TID 02/11/17 [History] Ferrous Sulfate [Iron] 325 mg PO DAILY 03/16/17 [History] Melbeta Carbonate 450 mg PO DAILY 03/16/17 [History] Mv-Mn/FA/Vit K/Lycop/Lut/Coq10 [Daily Multivitamin Capsule] 1 tab PO DAILY 03/16 [History] Acetaminophen [Tylenol] 650 mg PO Q6HR PRN tablet 04/07/17 [Rx] Ibuprofen [Motrin] 400 mg PO Q6HR PRN tablet 04/07/17 [Rx] Nicotine Patch [Nicoderm] 21 mg TD DAILY #14 patch.td24 04/07/17 [Rx] OxyCODONE/APAP 5/325 [Percocet 5/325 MG] 1 each PO ONCE #10 tablet 04/07/17 [Rx] Allergies/Adverse Reactions: 3 Allergy/AdvReac Type Severity Reaction Status Date / Time No Known Allergies Allergy Verified 03/30/17 10:25 Certification: Further, I certify that my clinical findings support that this patient is homebound (i.e. absences from home require considerable and taxing effort and are for medical reasons or zoroastrian services or infrequently or short duration when for other reasons) because: Homebound Reason: Patient requires assistance of a person or device to safely leave home (patient requires assistance with wound care - disrupted pilonidal cystectomy) Attestation: My signature below is to certify that this patient is under my care and that I, or nurse practitioner, or a physician's assistant film editor working with me, has a face-to -face encounter with this patient.
--- NOTE | 2017-04-07 14:06 | General Surgery Progress Note ---
Date of Encounter: 04/07/17 Time of Encounter: 13:20 Subjective Patient reports: no new complaints ( Wound vac intact - no leak ) Narrative: General Surgery - POD #8 Progress Note/Discharge Patient voicing no new complaints; anxious to be discharged home. Vital signs stable; afebrile, 98.5, pulse 85, respirations 16, blood pressure 146/101 (question the accuracy of this reading as patient has not been hypertensive for this entire hospitalization) Wound VAC is intact with no leak since the dressing change yesterday. Recorded drainage approximately 160 mL. Wound is otherwise intact, nontender. Lungs: Clear Cardiac: Regular rate, no appreciable murmurs Impression: Disrupted pilonidal cystectomy site. Status post irrigation and debridement, 03/29/2017. Status stable; wound responding to wound VAC slowly History of substance abuse Bipolar disorder History of hepatitis C Status on discharge - stable Hospital course: 41-year-old female status post pilonidal cystectomy with excision of subcutaneous lipoma right medial thigh, 03/16/17. Patient tolerated this procedure well and was discharged home the following day. The patient required readmission on 03/29/17 ascending to the emergency department with a disrupted pilonidal cystectomy site. The patient reported showering and "accidentally" disrupting the incision with her thumb. The patient was admitted for further care and management as well as surgical debridement of the disrupted pilonidal cystectomy site. A wound VAC was initiated. Over the next several days, maintaining suction on the wound was problematic as the wound VAC developed repeated leaks that the patient did not consistently allow staff to repair. There was no evidence of infection. The wound remaining clean and dry. The patient's status stabilized over approximately 8 days, until her discharge in good physical condition, 2016. The patient has required Percocet during her hospitalization for wound pain. This is been discussed repeatedly with the patient. To facilitate home care, Percocet 5/325, #10 has been provided with instructions to the patient and home health that the patient is to receive 1 Percocet 5/325 prior to dressing changes. Those dressing changes are anticipated to occur on Mondays, Wednesdays, and Fridays. Follow-up in my office has been arranged for 04/15/17. Objective Vital Signs - Last 8 Hours Temp Pulse Resp BP Pulse Ox 04/07/17 08:33 98.5 F 85 16 146/101 97 Intake and Output 04/06/17 04/07/17 04/07/17 23:59 07:59 15:59 Intake Total 360 / 360 240 / 240 360 / 360 Output Total 60 / 60 100 / 100 Balance 300 / 300 140 / 140 360 / 360 Intake: Oral 360 / 360 240 / 240 360 / 360 Output: Wound Drainage 60 / 60 100 / 100 Buttock 60 / 60 100 / 100 Other: Meal Dinner Breakfast Percent of Meal Consumed 100% 100% # Voids 2 1 - Labs 04/02/17 04:36 Consult Discharge Plan - Plan Additional Instructions: Wound Vac care with Home Health assistance Regular diet Tylenol, ibuprofen, Motrin, Advil, etc. as needed for pain Prescription for Percocet 5/325, #10, one to be taken prior to dressing changes Follow up my office, 04/15/2017 Referrals: Dieudonne Weiss MD [Non-Partnered Physician] - 04/15/17 2:50 pm Debra Forman CNP [Partnered Physician] - 05/03/17 9:00 am Prescriptions: Nicotine Patch [Nicoderm] 21 mg TD DAILY #14 patch.td24 OxyCODONE/APAP 5/325 [Percocet 5/325 MG] 1 each PO ONCE #10 tablet
== END 2017-04-07 14:52 | disposition home health service (06) | DRG 908 ==
LOC: SAMDAY 10:07 → 3ANU 16:42
PROVIDERS: ADMIT Surgery; ATTEND Surgery